=== PATIENT | male | born 1985 | race Caucasian/White ===

== ENCOUNTER 2016-12-16 10:31 | Emergency (ER) | payer OTHER ==
[~2016-12-16] VITALS: Ht 147.3 cm; Wt 70.3 kg
[2016-12-16 10:42] VITALS: BP 139/97; TEMP 98
[2016-12-16 11:23] LABS: PH 5 (5-8); SQUAMOUS EPITHELIAL None Seen /hpf; URINE APPEARANCE Clear; URINE BACTERIA Rare /hpf; URINE BILIRUBIN Negative (NEGATIVE); URINE BLOOD Negative (NEGATIVE); URINE COLOR Yellow; URINE GLUCOSE Negative (NEGATIVE); URINE KETONE Negative (NEGATIVE); URINE RBC 0-2 /hpf; URINE UROBILINOGEN Negative (NEGATIVE); URINE WBC 0-2 /hpf
[2016-12-16] MEDS ORDERED: FLEXERIL 1010 MG/TAB PO (11:36)
[2016-12-16 12:58] VITALS: PULSE 67
== END 2016-12-16 12:58 | disposition home or self-care (01) ==
LOC: COL.ER 10:31
PROVIDERS: Physician Assistant
DX: M54.5 Low back pain (principal); M62.830 Muscle spasm of back
CPT/HCPCS: J1885; J2360